=== PATIENT | male | born 1990 ===

== ENCOUNTER 2018-04-25 07:01 | Emergency (ER) | payer SELFPAY ==
[2018-04-25 07:16] VITALS: BP 156/100
--- NOTE | 2018-04-25 07:29 | UC ---
Knee Pain HPI - HPI Summary HPI Summary: The patient is a 27-year-old male who injured his left knee yesterday. He states that he was climbing down stairs and up portion of a stair broke and he twisted his left knee. He has severe pain with weightbearing. He walks with a pronounced limp. The majority of his pain is on the lateral portion of the knee. States that if he turns his chest right to his left knee tobin. His knee feels swollen to him. Denies any prior injuries to his left knee. - History of Current Complaint Chief Complaint: UCLowerExtremity Stated Complaint: LEFT KNEE INJURY Time Seen by Provider: 04/25/18 07:18 Hx Obtained From: Patient Onset/Duration: Sudden Onset, Lasting Hours Severity Initially: Severe Severity Currently: Severe Pain Intensity: 8 - less at rest Pain Scale Used: 0-10 Numeric Character: Aching, Throbbing, Spasmodic Aggravating Factor(s): Weight Bearing, Prolonged Standing Alleviating Factor(s): Rest, Cold, OTC Meds Associated Signs And Symptoms: Positive: Swelling Able to Bear Weight: Yes - Allergies/Home Medications Allergies/Adverse Reactions: Allergies Allergy/AdvReac Type Severity Reaction Status Date / Time No Known Allergies Allergy Verified 04/25/18 07:09 PMH/Surg Hx/FS Hx/Imm Hx Previously Healthy: Yes Cardiovascular History: Hypertension - not treated - Surgical History Surgical History: None - Family History Known Family History: Positive: Hypertension - Social History Alcohol Use: Occasionally Substance Use Type: None Smoking Status (MU): Never Smoked Tobacco Review of Systems Constitutional: Negative Skin: Negative Eyes: Negative ENT: Negative Respiratory: Negative Cardiovascular: Negative Gastrointestinal: Negative Genitourinary: Negative Motor: Negative Neurovascular: Negative Musculoskeletal: Arthralgia Neurological: Negative Psychological: Negative Is Patient Immunocompromised?: No All Other Systems Reviewed And Are Negative: Yes Physical Exam Triage Information Reviewed: Yes Appearance: Well-Appearing, No Pain Distress, Well-Nourished Vital Signs: Initial Vital Signs Temp 98.8 F 04/25/18 07:11 Pulse 102 04/25/18 07:11 Resp 16 04/25/18 07:11 BP 156/100 04/25/18 07:11 Pulse Ox 100 04/25/18 07:11 Vital Signs Reviewed: Yes Eyes: Positive: Conjunctiva Clear ENT: Positive: Hearing grossly normal. Negative: Nasal drainage, TMs normal, Trismus, Muffled voice, Hoarse voice Neck: Positive: Supple Respiratory: Positive: No respiratory distress Cardiovascular: Positive: RRR Musculoskeletal: Positive: Other: - The patient walks with an antalgic gait. Left knee appears swollen but I do not appreciate an effusion. He is tender over the lateral joint. He has a negative Penny's and anterior drawer test. Neurological: Positive: Alert Psychological Exam: Normal Skin Exam: Normal Diagnostics - Radiology No standard instances Xray Interpretation: No Acute Changes - small effusion Radiology Interpretation Completed By: Radiologist Knee Pain Course/Dx - Course Course Of Treatment: advised of need to follow up for BP as well as knee injury. told that he may need further imaging if not improving as expected - Differential Dx/Diagnosis Provider Diagnoses: left knee sprain Discharge - Sign-Out/Discharge Documenting (check all that apply): Discharge/Admit/Transfer - Discharge Plan Condition: Stable Disposition: HOME Patient Education Materials: Knee Sprain (DC), Knee Immobilizer (ED) Forms: *Work Release Referrals: [facility] [place] [facility] [Outside] (call this number for help finding a primary care provider. You need to have your blood pressure followed and treated if t remains consistently high. ) [facility] [place] [facility] [Outside] - As Soon As Possible Additional Instructions: elevate ice ibuprofen 200 mg 3 pills 4x day with food as needed for pain - Billing Disposition and Condition Condition: STABLE Disposition: Home
--- NOTE | 2018-04-25 08:10 | RAD ---
Indication: Medial and lateral LEFT knee pain following twisting injury. Comparison: No relevant prior exams available on the [facility] PACS for comparison. Technique: LEFT knee: AP, tunnel, lateral, sunrise views. Report: Small joint effusion. Negative for fracture or malalignment. Preserved joint spaces. Unremarkable soft tissue contours. IMPRESSION: #. Small joint effusion without additional radiographic abnormality.
== END 2018-04-25 08:31 | disposition home or self-care (01) ==
LOC: UCEAST 07:01
DX: S83.92XA Sprain of unspecified site of left knee, initial encounter (principal); I10 Essential (primary) hypertension; X50.1XXA Overexertion from prolonged static or awkward postures, initial encounter; Y93.39 Activity, other involving climbing, rappelling and jumping off; Y92.9 Unspecified place or not applicable
CPT/HCPCS: 99201; G0463